=== PATIENT | male | born 1970 ===

== ENCOUNTER 2020-09-16 05:55 | Day surgery (SDC) | payer OTHER ==
[~2020-09-16] VITALS: Ht 185.4 cm; Wt 79.1 kg
[~2020-09-16 05:55] MED LIST: LORA1 PO
--- NOTE | 2020-09-16 06:30 | NUR ---
PT VERY NERVOUS ABOUT SURGERY. Ambulatory in Day Surgery. History, Chart, Medications and Allergies reviewed before start of procedure. Lungs clear T/O to Auscultation. Patient confirms NPO status and agrees with scheduled surgery. Patient confirms NPO status and agrees with scheduled surgery.
--- NOTE | 2020-09-16 11:03 | NUR ---
Patient up to Ambulate independently. Gait steady DENIES NUMBNESS IN LOWER EXTREMITIES. Discharge instructions reviewed with patient. Patient verbalizes understanding. Copy given to patient to take home. Discharged via wheelchair to private car for ride home WITH . PT GIVEN ATHLETIC SUPPORT TO USE FOR COMFORT NEEDED.
== END 2020-09-16 10:57 | disposition home or self-care (01) ==
LOC: ORSCMMR 05:55 → ORD 07:30 → ORSCMMR 07:30
PROVIDERS: Surgery
PROC: 0YU54JZ Supplement Right Inguinal Region with Synthetic Substitute, Percutaneous Endoscopic Approach (ICD-10-PCS; principal; 2020-09-16 07:30)
PROC: 8E0W4CZ Robotic Assisted Procedure of Trunk Region, Percutaneous Endoscopic Approach (ICD-10-PCS; principal; 2020-09-16 07:30)
DX: K40.90 Unilateral inguinal hernia, without obstruction or gangrene, not specified as recurrent (principal); F17.210 Nicotine dependence, cigarettes, uncomplicated
CPT/HCPCS: 49650; S2900; A9270; C1781; J0690; J1100; J2250; J2405; J2704; J3010; J7120